=== PATIENT | female | born 1990 | race Caucasian/White ===

== ENCOUNTER 2021-08-18 04:42 | Inpatient (IN) ==
[2021-08-18] MEDS ORDERED: MEPERIDINE 50 MG/1 ML VIAL IV PRN (05:26)
[2021-08-18] MEDS ORDERED: LACTATED RINGERS 250 ML IV ONE (05:26)
[2021-08-18] MEDS ORDERED: BUTORPHANOL 2 MG/ML VIAL IV PRN (05:26)
[2021-08-18] MEDS ORDERED: ONDANSETRON 4 MG/2 ML VIAL IV PRN (05:26)
[2021-08-18] MEDS ORDERED: FAMOTIDINE 20 MG/2 ML VIAL IV SCH (05:30)
[2021-08-18] MEDS ORDERED: ceFAZolin 2,000 MG/50 ML DUPLEX IV ONE (05:32)
[2021-08-18] MEDS ORDERED: CITRIC ACID/SODIUM CITRATE 30 ML UDCUP PO ONE (05:34)
[2021-08-18] MEDS ORDERED: CITRIC ACID/SODIUM CITRATE 30 ML UDCUP ONE (05:34)
[2021-08-18] MEDS ORDERED: OXYTOCIN/LR 30 UNIT/1,000 ML BAG IV ONE (05:36)
[2021-08-18] MEDS: LACTATED RINGERS 1,000 ML IV SCH ×2 (05:37→19:53)
[2021-08-18 05:44] LABS: Basophils % 0.1 % (0.0-0.8); Hematocrit 34.9 VOL% (35.7-47.0); Immature Granulocytes Absolute 0.19 #; Lymphocytes # 1.3 10*3/uL (1.4-4.0); Lymphocytes % 13.4 % (21.3-54.2); Mean Corpuscular HGB Conc 31.5 GM/DL (32-36); Mean Corpuscular Volume 74.9 FL (87-102); Mean Platelet Volume 11.5 FL (9.6-12.0); Monocytes % 3.8 % (1.7-12.7); Neutrophils % 80.7 % (38.7-73.9); Platelet Count 163 T/CUMM (130-400); Red Blood Count 4.66 MC/CUMM (3.8-5.5); Red Cell Distribution Width 16.9 % (9.3-17.3); White Blood Count 9.6 T/CUMM (4-12)
[2021-08-18] MEDS ORDERED: miSOPROStoL 200 MCG TABLET ONE ×2 (05:46→06:14)
[2021-08-18] MEDS ORDERED: METHYLERGONOVINE 0.2 MG/1 ML AMP ONE ×2 (05:46→06:16)
[2021-08-18] MEDS ORDERED: CARBOPROST TROMETHAMINE 250 MCG/ML AMP IM ONE ×2 (05:46→06:16)
[2021-08-18] MEDS ORDERED: TRANEXAMIC ACID 1,000 MG/10 ML VIAL ONE ×2 (05:46→06:14)
[2021-08-18] MEDS ORDERED: SODIUM CHLORIDE 0.9% 0 ML IV ONE (05:48)
[2021-08-18] MEDS ORDERED: BUPIVACAINE SPINAL 0.75% 2 ML AMP SPINAL ONE (05:58)
[2021-08-18] MEDS ORDERED: ONDANSETRON 4 MG/2 ML VIAL ONE (05:58)
[2021-08-18 06:06] LABS: Albumin 2.6 G/DL (3.4-5.0); Bilirubin,Total 1.1 MG/DL (0.20-1.00); Calcium 9.8 MG/DL (8.5-10.1); Osmolality,Calculated 274.5 MOS/KG (273-304); Potassium 3.9 MMOL/L (3.5-5.1); Total Protein 6.6 G/DL (6.4-8.2)
[2021-08-18] MEDS ORDERED: OXYTOCIN/LR 20 UNIT/1,000 ML BAG IV ONE ×2 (06:15→09:57)
[2021-08-18] MEDS ORDERED: SODIUM CHLORIDE 0.9% 100 ML IV ONE (06:15)
[2021-08-18] MEDS ORDERED: ePHEDrine 50 MG/ML VIAL ONE (06:18)
[2021-08-18] MEDS ORDERED: fentaNYL 100 MCG/2 ML VIAL ONE (06:31)
[2021-08-18] MEDS ORDERED: DEXAMETHASONE 4 MG/1 ML VIAL ONE (06:39)
[2021-08-18] MEDS ORDERED: ACETAMINOPHEN INJ 1,000 MG/100 ML VIAL IV ONE (06:39)
[2021-08-18] MEDS ORDERED: KETOROLAC 30 MG/1 ML VIAL ONE (06:40)
[2021-08-18 07:07] LABS: Cord Arterial Blood HCO3 19.9 MMOL/L
[2021-08-18 07:09] LABS: Cord Venous Blood HCO3 20.5 MMOL/L; Cord Venous Blood PCO2 45.2 MMHG; Cord Venous Blood PO2 21.7
[2021-08-18 07:12] LABS: Cord Arterial Blood HCO3 20.3 MMOL/L
[2021-08-18 07:15] LABS: Cord Venous Blood PCO2 38.9 MMHG; Cord Venous Blood PO2 21.4 MMHG
[2021-08-18 07:18] LABS: Cord Venous Blood HCO3 20.8 MMOL/L; Cord Venous Blood PCO2 38.9 MMHG; Cord Venous Blood PO2 23.4 MMHG
[2021-08-18 07:19] LABS: Cord Arterial Blood HCO3 20.3 MMOL/L
[2021-08-18] MEDS ORDERED: METHYLERGONOVINE 0.2 MG/1 ML AMP IM ONE (07:35)
[2021-08-18 07:49] LABS: Bilirubin,Urine Negative (Negative); Blood, Urine Negative (Negative); Glucose,Urine (UA) Negative (Negative); Ketones,Urine 20 mg/dL (Negative); Mucus,Urine Occasional /LPF (Occasional); Nitrite,Urine Negative (Negative); Protein,Urine Negative; RBC,Urine <1 /HPF (0-4); Urine Appearance CLEAR (Clear); Urine Color Yellow (Yellow); Urine Specific Gravity 1.012 (1.001-1.035); Urine Urobilinogen < 2.0 EU/DL (0.2-1.0)
[2021-08-18] MEDS: ACETAMINOPHEN 500 MG TABLET PO SCH ×2 (11:11→17:21)
[2021-08-18] MEDS: KETOROLAC 30 MG/1 ML VIAL IV SCH ×2 (11:12→17:24)
[2021-08-18 13:47] LABS: Basophils % 0.1 % (0.0-0.8); Hematocrit 31.7 VOL% (35.7-47.0); Immature Granulocytes % 1.4 %; Immature Granulocytes Absolute 0.19 #; Lymphocytes # 1.1 10*3/uL (1.4-4.0); Lymphocytes % 8.1 % (21.3-54.2); Mean Corpuscular HGB Conc 31.5 GM/DL (32-36); Mean Corpuscular Volume 75.3 FL (87-102); Mean Platelet Volume 11.4 FL (9.6-12.0); Neutrophils % 86.4 % (38.7-73.9); Platelet Count 142 T/CUMM (130-400); Red Blood Count 4.21 MC/CUMM (3.8-5.5); White Blood Count 13.4 T/CUMM (4-12)
[2021-08-18] MEDS ORDERED: WITCH HAZEL PADS 100/JAR TOP PRN (18:23)
[2021-08-18] MEDS ORDERED: DIPH/TET/ACEL PERT BOOSTER VACCINE 0.5 ML VIAL IM ONE (18:23)
[2021-08-18] MEDS ORDERED: BISACODYL 10 MG SUPP RECTAL PRN (18:23)
[2021-08-18] MEDS ORDERED: oxyCODONE/ACETAMINOPHEN 5-325 MG TABLET PO PRN (18:23)
[2021-08-18] MEDS ORDERED: BENZOCAINE 20%/MENTHOL 0.5% SPRAY 56 GM CAN TOP PRN (18:23)
[2021-08-18] MEDS ORDERED: HYDROCORTISONE 2.5% RECTAL CREAM 30 GM TUBE TOP PRN (18:23)
[2021-08-18] MEDS ORDERED: LANOLIN 50% CREAM 0.3 OZ TUBE TOP PRN (18:23)
[2021-08-18] MEDS: DOCUSATE SODIUM 100 MG CAPSULE PO SCH (22:46)
[2021-08-19] MEDS: KETOROLAC 30 MG/1 ML VIAL IV SCH (00:04)
[2021-08-19 06:16] LABS: Basophils % 0.2 % (0.0-0.8); Eosinophils # 0.1 10*3/uL (0.0-0.87); Eosinophils % 0.5 % (0.00-10.9); Hematocrit 27.1 VOL% (35.7-47.0); Hemoglobin 8.4 GM/DL (12.0-16.0); Immature Granulocytes % 1.6 %; Immature Granulocytes Absolute 0.19 #; Lymphocytes # 1.9 10*3/uL (1.4-4.0); Lymphocytes % 16.3 % (21.3-54.2); Mean Corpuscular Volume 75.9 FL (87-102); Mean Platelet Volume 11.2 FL (9.6-12.0); Monocytes % 5.4 % (1.7-12.7); Platelet Count 145 T/CUMM (130-400); Red Blood Count 3.57 MC/CUMM (3.8-5.5); Red Cell Distribution Width 16.4 % (9.3-17.3); White Blood Count 11.8 T/CUMM (4-12)
[2021-08-19] MEDS: IBUPROFEN 800 MG TABLET PO PRN ×3 (06:34→18:01)
[2021-08-19] MEDS: DOCUSATE SODIUM 100 MG CAPSULE PO SCH ×2 (07:47→20:43)
[2021-08-19] MEDS: IRON (CARBONYL)/VIT C/B12/FA TABLET PO SCH (09:04)
[2021-08-19] MEDS: oxyCODONE/ACETAMINOPHEN 5-325 MG TABLET PO PRN ×2 (12:12→17:59)
[2021-08-19] MEDS ORDERED: MAGNESIUM HYDROXIDE SUSP 30 ML UDCUP PO PRN (20:23)
[2021-08-20] MEDS: oxyCODONE/ACETAMINOPHEN 5-325 MG TABLET PO PRN ×2 (00:07→09:49)
[2021-08-20] MEDS: IBUPROFEN 800 MG TABLET PO PRN ×2 (05:10→12:45)
[2021-08-20] MEDS: IRON (CARBONYL)/VIT C/B12/FA TABLET PO SCH (08:42)
[2021-08-20] MEDS: DOCUSATE SODIUM 100 MG CAPSULE PO SCH (08:42)
[2021-08-20 13:25] VITALS: BP 116/67
== END 2021-08-20 13:50 | disposition home or self-care (01) | DRG 786 ==
LOC: N.LD 04:42 → N.OB 12:57
PROVIDERS: ADMIT Obstetrics & Gynecology; ATTEND Obstetrics & Gynecology
PROC: LDCSECT (ICD-10-PCS; 2021-08-18 05:55)